=== PATIENT | male | born 1995 | race Caucasian/White ===

== ENCOUNTER 2022-06-19 18:36 | Emergency (ER) | payer SELFPAY ==
[~2022-06-19] VITALS: Ht 172.7 cm; Wt 85.2 kg
--- NOTE | 2022-06-19 18:57 | ED Upper Extremity ---
General Chief Complaint: Upper Extremity Stated Complaint: L POINTER FINGER SMASHED W HAMMER Nursing Triage Note: PT AMB TO [facility] WITH FRIEND. PTS FRIEND TRANSLATED FOR PT STATING THAT HE HIT HIS LEFT POINTER FINGER WITH A HAMMER. PT WAS SEEN AT THE [facility] AND REFERED TO ER FOR FURTHER EVALUATION. Source: patient Exam Limitations: no limitations History of Present Illness Date Seen by Provider: Jun 19, 2022 Time Seen by Provider: 18:57 Initial Comments Smashed left pointer finger with a hammer at home just prior to arrival. Went to [facility] got a tetanus vaccine and referred here to the emergency room. Onset: just prior to arrival Severity: moderate Allergies and Home Medications Allergies Coded Allergies: No Known Drug Allergies (Unverified , 06/19/22) Patient Home Medication List Home Medication List Reviewed: Yes Cephalexin (Cephalexin) 500 Mg Tablet, 500 MG PO TID Prescribed by: VIOLA MORALES on 06/19/221946 Hydrocodone/Acetaminophen (Hydrocodone-Acetamin 5-325 mg) 5 Mg-325 Mg Tablet, 1 TAB PO Q4H PRN for PAIN-MODERATE (5-7) Prescribed by: VIOLA MORALES on 06/19/221946 Review of Systems Constitutional: see HPI EENTM: see HPI Respiratory: no symptoms reported Cardiovascular: no symptoms reported Genitourinary: no symptoms reported Musculoskeletal: see HPI Skin: no symptoms reported Psychiatric/Neurological: No Symptoms Reported Past Acpfvqq-Fmfxmw-Qyxvin Hx Patient Social History Tobacco Use?: No Substance use?: No Alcohol Use?: No Pt feels they are or have been: Unable to obtain Immunizations Up To Date Influenza Vaccine Up-to-Date: No; Not Current Physical Exam Vital Signs Vital Signs - First Documented 06/19/22 18:40 Temp 36.7 Pulse 55 Resp 18 B/P (MAP) 126/79 (95) Pulse Ox 99 O2 Delivery Room Air Capillary Refill : Less Than 3 Seconds Height, Weight, BMI Height: '" Weight: lbs. oz. kg; 28.00 BMI Method: General Appearance: WD/WN, no apparent distress HEENT: PERRL/EOMI, normal ENT inspection Respiratory: no respiratory distress, no accessory muscle use Shoulder: normal inspection, non-tender Elbow/Forearm: normal inspection, non-tender Wrist: Yes normal inspection, Yes non-tender Hand: Left, laceration (Crush injury left pointer finger) Procedures/Interventions Wound Location: Upper Extremities Wound Length (cm): 1 Wound's Depth, Shape: bone, sub Q Suture: Chromic Suture Size: 5-0 Number of Sutures: 10 Layer Closure?: 0 Number Deep Layer Sutures: 0 Progress Did a digital block using 5 mL of 1% lidocaine without epinephrine buffered with 0.5 mL of sodium bicarb. Then removed the partially avulsed fingernail. This revealed 2 nailbed lacerations. These were sutured in the fingertip edges reapproximated. The foil from the suture packet was used to create a temporary splint for the proximal nail fold held in place with 2 sutures. He will need to have these 2 sutures removed and the splint removed in about 5 days. He is to keep this current dressing in place until he returns in 5 days. Progress/Results/Core Measures Results/Orders My Orders Orders - VIOLA MORALES APRN Finger(S) (06/19/22 18:55) Cephalexin Capsule (Keflex Capsule) (06/19/22 19:00) Rx-Hydrocodone/Apap 5-325 Mg (Rx-Vicodin (06/19/22 19:00) Vital Signs/I&O 06/19/22 18:40 Temp 36.7 Pulse 55 Resp 18 B/P (MAP) 126/79 (95) Pulse Ox 99 O2 Delivery Room Air Blood Pressure Mean: 95 Departure Impression Primary Impression: Crushing injury of finger of left hand Disposition: 01 HOME, SELF-CARE Condition: Stable Departure-Patient Inst. Decision time for Depature: 19:44 Ref[place]: [facility] [place] Primary Care Physician Patient Instructions: Crush Injury Add. Discharge Instructions: 1. Return to ER in 4, 5, or 6 days to have the fingernail splint removed. Take the antibiotics as directed. Pain medication as directed. Scripts Hydrocodone/Acetaminophen (Hydrocodone-Acetamin 5-325 mg) 5 Mg-325 Mg Tablet 1 TAB PO Q4H PRN for PAIN-MODERATE (5-7), #14 TAB Prov: VIOLA MORALES APRN 06/19/22 Cephalexin (Cephalexin) 500 Mg Tablet 500 MG PO TID, #15 TAB Prov: VIOLA MORALES APRN 06/19/22 VIOLA MORALES APRN Jun 19, 2022 18:57
[2022-06-19] MEDS ORDERED: CEPHALEXIN 250 MG (KEFLEX) CAP PO SCH (19:00)
--- NOTE | 2022-06-19 19:13 | Diagnostic Imaging Report ---
EXAMINATION: Left second finger, 2 views. Left hand, single view. COMPARISON: None. HISTORY: 26-year-old male, left pointer finger. FINDINGS: There is no identified acute fracture. There is no subluxation or dislocation. Joint spaces appear well preserved. There is a lucency in the region of the nail bed which could relate to soft tissue gas. There is also a questionable very superficially located distal foreign body measuring 1 mm in size or less. This is perhaps best demonstrated on image 3 and is dorsally located at the very distal margin of the second digit. IMPRESSION: 1. No acute osseous abnormality. 2. Lucency projecting within the soft tissues in the region of the nail bed which could relate to soft tissue gas. This could relate to a penetrating type injury or lucent foreign body. Recommend correlation. 2. Potential 1 mm or less high attenuation foreign body within the dorsal soft tissues at the level of the distal margin of the second distal phalanx. Dictated by: Dictated on workstation # [id number]
[2022-06-19] MEDS ORDERED: CEPH500T PO (19:47)
[2022-06-19] MEDS ORDERED: ACHD5005 PO (19:47)
[2022-06-19 19:56] VITALS: BP 122/77
== END 2022-06-19 19:56 | disposition home or self-care (01) ==
LOC: ER 18:39
DX: S67.191A Crushing injury of left index finger, initial encounter (principal); Z28.310 Unvaccinated for COVID-19; W27.8XXA Contact with other nonpowered hand tool, initial encounter; Y92.009 Unspecified place in unspecified non-institutional (private) residence as the place of occurrence of the external cause
CPT/HCPCS: 11730; 12041; 73140

== ENCOUNTER 2022-06-24 17:07 | Emergency (ER) | payer SELFPAY ==
[~2022-06-24] VITALS: Ht 172.7 cm; Wt 85.2 kg
[~2022-06-24 17:07] MED LIST: ACHD5005 PO; CEPH500T PO
[2022-06-24 17:40] VITALS: BP 127/80
== END 2022-06-24 17:40 | disposition home or self-care (01) ==
LOC: EDUNIT# 17:07 → ER 17:11
DX: Z48.02 Encounter for removal of sutures (principal)